=== PATIENT | female | born 1960 | race Caucasian/White ===

== ENCOUNTER 2018-06-01 17:00 | Emergency (ER) | payer OTHER ==
[~2018-06-01] VITALS: Ht 165.1 cm; Wt 66.7 kg
[~2018-06-01 17:00] MED LIST: CRESTOR PO; PERCOCET 5-3251 EACH PO
[2018-06-01] MEDS ORDERED: SYMBICORT 16010.2 GM INH (18:04)
[2018-06-01] MEDS ORDERED: ALBUTEROL2.5 MG/3 M INH (18:05)
[2018-06-01] MEDS ORDERED: PREDNISONE5 MG PO (18:05)
[2018-06-01] MEDS ORDERED: IPRATROPIU0.2 MG/1 M INH (18:05)
[2018-06-01] MEDS ORDERED: COMBIVENT RESPIM4 GM INH (18:06)
[2018-06-01] MEDS ORDERED: DICLOFENAC SODI75 MG PO (20:42)
[2018-06-01] MEDS ORDERED: CYCLOBENZAPRINE10 MG PO (20:42)
== END 2018-06-01 20:58 | disposition home or self-care (01) ==
LOC: ED 17:00
DX: S46.911A Strain of unspecified muscle, fascia and tendon at shoulder and upper arm level, right arm, initial encounter (principal); J44.9 Chronic obstructive pulmonary disease, unspecified; I10 Essential (primary) hypertension; F17.200 Nicotine dependence, unspecified, uncomplicated; Z90.710 Acquired absence of both cervix and uterus; Z88.2 Allergy status to sulfonamides; Z88.1 Allergy status to other antibiotic agents; Z79.52 Long term (current) use of systemic steroids; V89.2XXA Person injured in unspecified motor-vehicle accident, traffic, initial encounter
CPT/HCPCS: 71046; 73030; 99283-25

== ENCOUNTER 2021-06-02 09:55 | Day surgery (SDC) | payer OTHER ==
[~2021-06-02] VITALS: Ht 165.1 cm; Wt 46.9 kg
[~2021-06-02 09:55] MED LIST changes: +ALBUTEROL2.5 MG/3 M INH; +COMBIVENT RESPIM4 GM INH; +CYCLOBENZAPRINE10 MG PO; +DICLOFENAC SODI75 MG PO; +IPRATROPIU0.2 MG/1 M INH; +MONTELUKAST SOD10 MG PO; +OXYBUTYNIN CHLO10 MG PO; +PREDNISONE5 MG PO; +ROSUVASTATIN CA40 MG PO; +SERTRALINE HCL50 MG PO; +SYMBICORT 16010.2 GM INH; +TRIAMTERENE-HC1 EAC3 PO; +XANAX1 MG PO
--- NOTE | 2021-06-02 12:51 | NUR ---
06/02/21 1251 Joanna Pinon 1213 PT ARRIVED IN PACU SLEEPY LAYING PRONE. 1220 REPOSITIONED TO BACK AND SITTING UP TALKING TO STAFF. 1230 SIPPING ON WATER. DC INSTRUCTIONSG GIVEN. ALL QUESTIONS ANSWERED. 1240 LEFT VIA W/C ON OWN O2.
== END 2021-06-02 12:40 | disposition home or self-care (01) ==
LOC: OPS 09:55 → DS 09:55 → OPS 12:00
PROVIDERS: ATTEND Specialist
PROC: 079T3ZX Drainage of Bone Marrow, Percutaneous Approach, Diagnostic (ICD-10-PCS; 2021-06-02)
PROC: 07DR3ZX Extraction of Iliac Bone Marrow, Percutaneous Approach, Diagnostic (ICD-10-PCS; principal; 2021-06-02 12:00)
DX: C94.6 Myelodysplastic disease, not elsewhere classified (principal); I10 Essential (primary) hypertension; J44.9 Chronic obstructive pulmonary disease, unspecified; E78.5 Hyperlipidemia, unspecified; Z99.81 Dependence on supplemental oxygen; Z88.2 Allergy status to sulfonamides; Z88.1 Allergy status to other antibiotic agents
CPT/HCPCS: 01112; 36415; 85007; 85025; J2704; J7121

== ENCOUNTER 2022-05-21 16:39 | Inpatient (IN) | payer MEDICARE, OTHER ==
[~2022-05-21] VITALS: Ht 165.1 cm; Wt 45.3 kg
--- OUTSIDE RECORDS SUMMARY | 2022-05-21 16:42 | XMS ---
PreManage Notification: DANIEL MARTINEZ [employer] Events No recent Security Events currently on file [facility] There are no care providers on record at this time. Richard has no Care Guidelines for this patient. Rod VISIT COUNT (12 MO.) 1 LI Bourne TOTAL 1 NOTE: Visits indicate total known visits. ED/UCC VISIT TRACKING (12 MO.) 05/21/2022 16:40 LI [facility]aza OR TYPE: Emergency COMPLAINT: - ALTERED LOC INPATIENT VISIT TRACKING (12 MO.) No inpatient visits to display in this time frame [email or web address]
[2022-05-21] MEDS ORDERED: IMATINIB MESYL400 MG PO (20:11)
[2022-05-21] MEDS ORDERED: ACETAMINOPHEN-1 EAC1 PO (20:13)
[2022-05-21] MEDS ORDERED: K-TAB ER20 MEQ PO (20:14)
[2022-05-21] MEDS ORDERED: METOPROLOL SUCC25 MG PO (20:14)
[2022-05-21] MEDS ORDERED: FUROSEMIDE20 MG PO (20:15)
[2022-05-21] MEDS ORDERED: FAMOTIDINE20 MG PO (20:16)
[2022-05-21] MEDS ORDERED: SPIRIVA RESPIMAT4 GM INH (20:17)
--- NOTE | 2022-05-21 20:45 | NUR ---
Patient received from ED nurse, ZACHERY Gregg with report given at bedside. Patient on 4 LPM supplemental oxygen via facemask with no respiratory distress. Patient is accompanied by partner, Yves. Initial assessment performed with no critical measures necessary. All vital signs stable with no indications of fever or pain. Blood glucose assessed to be within normal limits with value of 100. Chlorahexidine bath performed with skin tear noted on right elbow and redness and ecchymosis noted on neck and bliateral arms. Peripheral iv's flushed with dressings intact. Verduzco catheter in place and draining properly.
--- NOTE | 2022-05-21 21:12 | EKG ---
[facility] [address] [facility] [place] [address] Signed Sinus tachycardia Anteroseptal infarct (cited on or before 21-MAY-2022) Abnormal ECG When compared with ECG of 21-MAY-2022 16:54, (Unconfirmed) Serial changes of evolving Anteroseptal infarct present Confirmed by Rolo Su MD () on 05/21/2022 9:12:19 PM Electronically Signed By: ROLO SU MD 05/21/222111 PATIENT NAME: DANIEL MARTINEZ Electrocardiogram DATE OF : 56 PHYSICIAN: ROLO SU MD REPORT #: [id number] REPORT IS CONFIDENTIAL AND NOT TO BE RELEASED WITHOUT AUTHORIZATION
--- NOTE | 2022-05-21 21:13 | EKG ---
[facility] [address] [facility] [place] [address] Signed Sinus tachycardia Anteroseptal infarct , age undetermined Abnormal ECG No previous ECGs available Confirmed by Rolo Su MD () on 05/21/2022 9:13:04 PM Electronically Signed By: ROLO SU MD 05/21/222112 PATIENT NAME: DANIEL MARTINEZ Electrocardiogram DATE OF : 56 PHYSICIAN: ROLO SU MD REPORT #: [id number] REPORT IS CONFIDENTIAL AND NOT TO BE RELEASED WITHOUT AUTHORIZATION
--- NOTE | 2022-05-21 22:00 | NUR ---
MD called regarding nightly medications with orders received to administer night meds including patient's own Imatinib 400 mg tab for blood cancer treatment. Patient ate snack with meds and is now resting comfortably while on BiPap at 32% FiO2. All vital signs stable.
--- NOTE | 2022-05-22 | NUR ---
Repeat assessment performed with no acute changes since previous assessment unless noted. All vital signs stable with no complaints or indications of acute respiratory distress, fever or pain. IV fluids infusing via PIV at 125 ml/hr and castellanos remains in place and draining. Will continue to monitor.
--- NOTE | 2022-05-22 02:00 | NUR ---
Called RT to patient room at 0100 due to respiratory distress and low O2 sats. BiPAP settings and Oxygen adjusted. Adminisered tylenol for complaints of headache. Will continue to monitor.
--- NOTE | 2022-05-22 04:00 | NUR ---
Repeat assessment performed with any acute changes noted. BiPap settings now AVAPS mode, Rate 14, TV 500, EPAP 5, 35% FiO2. All vital signs now stable ith no complaints of acute respiratory distress, fever or pain. NS still infusing via PIV at 125 ml/hr. Verduzco remains in place and patent. Will continue to monitor.
--- NOTE | 2022-05-22 06:02 | NUR ---
Patient awake and watching television with no complaints of respiratory distress or pain. All vital signs stable with no indications of fever. Comfort measures provided.
--- NOTE | 2022-05-22 06:40 | NUR ---
Dr. Mccallum notified of overnight episodes of respiratory distress and patient's wish to be intubated. Orders received to give 9am dose of Solumedrol now and 15 mg albuterol treatment. Doctor indicated that he will speak with patient today to clarify code status.
[2022-05-22] MEDS ORDERED: VENTOLIN HFA18 GM INH (07:28)
--- NOTE | 2022-05-22 07:47 | NUR ---
IN PATIENT'S ROOM FOR MORNING ASSESSMENT AND VITALS. PT AWAKE, SITING UPRIGHT IN BED UPON INITIAL ASSESSMENT, ON BIPAP. SETTINGS ARE AVAPS 5 VT 500 AND 40% FI02. SP02 ON THIS IN THE HIGHER 90s. PT STATES THE MASK IS WET AND WANTING TO HAVE IT DRIED OFF. MASK OFF FOR 1-2 MINUTES AND ON 4 L OXYMASK WHILE SHE TAKES A FEW DRINKS OF WATER. PT QUICKLY BECOMES SHORT OF BREATH OFF THE BIPAP. PT DOESN'T RECALL EVENTS FROM YESTERDAY, BUT STATES SHE IS BREATHING BETTER THAN SHE WAS EARLIER IN THE NIGHT. PLAN OF CARE DISCUSSED. PT AGREEABLE TO WEAR BIPAP THROUGH THE DAY. BAILEY DRAINING CLEAR YELLOW URINE. RT NOW IN ROOM PROVIDING BREATHING TREATMENT. CONTINUE TO MONITOR CLOSELY.
--- NOTE | 2022-05-22 08:21 | NUR ---
PATIENT STATES SHE HAS A HEADACHE. TYLENOL OFFERED. PT AGREEABLE. PT STATES SHE DOESN'T FEEL ABLE TO TAKE THE BIPAP MASK OFF AT THIS TIME SHE IS HAVING A PANICK ATTACK. REASSURING PATIENT AND WILL GIVE MEDS WHEN PATIENT FEELS MORE UNDER CONTROL WITH HER BREATHING. CURRENT SP02 IS 94% ON 35% BIPAP. PT AGREEABLE THAT SHE WANTS TO WAIT BEFORE TRYING TO DRINK/TAKE PILLS. CONTINUE TO MONITOR. CALL LIGHT IN REACH. PT WATCHING TV.
--- NOTE | 2022-05-22 08:33 | NUR ---
DR. SU IN ROOM AT THIS TIME AND PATIENT WISHES TO STAY A DNR/DNI AT THIS TIME. DISCUSSED PLAN OF CARE. IV STEROIDS TO BE INCREASED.
--- NOTE | 2022-05-22 10:57 | NUR ---
PATIENT USES CALL LIGHT AND TAPS HER CHEST TO SHOW SHE IS STRUGGLING TO BREATH. RT CALLED TO GIVE PRN NEB TX. PT VERY ANXIOUS, PULLING AT SIDE RAIL AND STATING AGAIN, "I CAN'T BREATH." WHILE NEB TX GOING, PRN ATIVAN GIVEN (SEE EMAR). PT HAS NEVER BEEN ADMITTED FOR A COPD EXACERBATION, AND IS UNSURE OF COURSE OF HOSPITALIZATION. DISCUSSED WITH HER THE PLAN OF CARE AND THE STEPS NEEDED TO CONTINUE TO HELP HER, INCLUDING WEARING BIPAP AND FREQUENT NEB TXs, ALONG WITH THE STEROIDS. PT REASSURED BEST POSSIBLE. PT STARTING TO CALM. BAILEY CONTINUES TO DRAIN CLEAR YELLOW URINE. WILL CONTINUE TO MONITOR CLOSELY. DISCUSSED WITH RT POTENTIALLY DOING NEB TXs CLOSER TO Q2 THAN Q4 FOR THE NEXT SEVERAL NEB TXs.
--- NOTE | 2022-05-22 12:24 | NUR ---
PT IS RESTING WITH EYES CLOSED BUT CAN BE AROUSED. PT HAS CALL LIGHT WITHIN REACH. PT RECIEVED ATIVAN 0.5MG WHICH ALLOWED HER TO REST AND SLEEP. PT HAS RECIEVED 500ML OF NS AND HER OUTPUT IS 223ML, THE URINE IS YELLOW.
--- NOTE | 2022-05-22 13:03 | NUR ---
PATIENT'S JENNIFER NOW IN ROOM AND GIVEN UPDATE. PT AWAKE AND CONVERSING SLIGHLTY WITH HIM, BUT HARD FOR HER TALK WITH BIPAP MASK ON. WILL CONTINUE TO MONITOR.
--- NOTE | 2022-05-22 15:17 | NUR ---
PT RECIEVED CORTICOSTEROID PER eMAR AND IS RESTING COMFORTABLE IN BED WITH THE CALL LIGHT WITHIN REACH. THE PT IS EASILY SHORT OF BREATH AND HAS BIPAP ON AT 35% AND HAS WORN BIPAP FOR THE MAJORITY OF DAY. PT IS VERY AGREEABLE WHEN CARE PLANS ARE BEING DISCUSSED AND APPRECIATES WHEN THINGS ARE EXPLAINED TO HER. PT HAS NEVER BEEN HOSPITALIZED FOR COPD BEFORE AND BECOMES VERY ANXIOUS AROUND HER BREATHING. WILL CONTINUE TO MONITOR.
--- NOTE | 2022-05-22 16:04 | NUR ---
PATIENT CALLING OUT PANICKED BECAUSE SHE COULDN'T FIND HER CALL LIGHT AND STATES, "I CAN'T BREATH!" PT STILL WEARING BIPAP. LUNGS ASSESSED. RT CALLED AND ARRIVES TO ROOM TO ASSESS PATIENT. PATIENT WORKING HARDER TO BREATH THAN EARLIER, BUT SEEMINGLY MORE ANXIOUS WELL. LAST NEB WAS AT 0230, AND THIS WAS AROUND 0330. RT MADE SOME CHANGES TO BIPAP SETTINGS AND 0.25 IV ATIVAN GIVEN. LUNGS CONTINUE TO HAVE INSP AND EXP WHEEZING AUSCULTATED. SP02 HAD ALSO BEEN LOWER IN THE MID TO LOW 90s ON 35%. NEXT NEB TO BE GIVEN AROUND 1630 PER RT. PATIENT STATES AFTER RT MADE CHANGES TO BIPAP THAT SHE COULD FEEL THE DIFFERENCE AND FELT MORE AT EASE. WILL CONTINUE TO MONITOR CLOSELY. PT NOW VERY CONCERNED ABOUT HER NORMAL NIGHT TIME MEDIATIONS AND DISCUSSING WITH THIS RN WHICH MEDICATIONS IN PARTICULAR SHE WANTED TO MAKE SURE SHE WAS TAKING. WILL DISCUSS WITH .
--- NOTE | 2022-05-22 17:42 | NUR ---
DR. SU CALLED TO GIVE UPDATE ON PATIENT AND OVERALL HOW SHE HAS DONE TODAY. ORDERS TO BE REC'D FOR DIFFERENT IVF. WILL HAVE RT CALL MD TO GIVE UPDATE WELL.
--- NOTE | 2022-05-22 20:00 | NUR ---
Bedside report received from the outgoing nurse, ZACHERY Escamilla. Initial assessment performed with no critical measures necessary. All vital signs stable with no complaints of acute respiratory distress, fever or pain. Patient is on BiPAP mode with settings of 20/8 at 40% FiO2. IV fluids infusing via PIV at 125 ml/hr. Verduzco in place, patent and draining with no dependent loops. Will continue to monitor.
--- NOTE | 2022-05-22 22:00 | NUR ---
Patient resting comfortably while on BiPAP. Mode was changed to AVAPS by RT at 20:30 and patient is tolerating the revised settings well. All vital signs stable.
--- NOTE | 2022-05-23 | NUR ---
Repeat assessment performed with any acute changes noted. Patient trialing 4 L nasal cannula for water and nutrition break. All vital signs stable with no indications of acute respiratory distress, fever or pain. IV fluids still infusing at 125 ml/hr. Verduzco in place and patent. Will continue to monitor closely for signs of respiratory distress while on nasal cannula. RT at bedside as well.
--- NOTE | 2022-05-23 00:27 | NUR ---
Patient back on BiPap after 30 minute trial on 4 LPM nasal cannula. No acute respiratory distress noted. All vital sign stable.
--- NOTE | 2022-05-23 02:30 | NUR ---
Patient stable and resting comfortably after power outage. All vital signs stable with no indications of further respiratory distress. Will continue to monitor.
--- NOTE | 2022-05-23 04:00 | NUR ---
Repeat assessment performed with no acute changes since previous assessment unless noted. All vital signs stable with no complaints or indications of further respiratory distress, fever or pain. Patient still on AVAPS setting with Rate 16, TV 500, EPAP 6, and 40% FiO2. IV fluids still infusing at rate of 125 ml/hr. Verduzco in place and patent. Will continue to monitor.
--- NOTE | 2022-05-23 06:22 | NUR ---
Patient resting comfortably with no complaints of further respiratory distress. All vital signs stable. Verduzco bag emptied and comfort measures provided.
--- NOTE | 2022-05-23 07:31 | NUR ---
PATIENT AWAKE, ON BIPAP, AND INDICATES SHE IS FEELING BETTER TODAY. RT IN ROOM NOW GIVING BREATHING TX. BIPAP SETTINGS ARE AVAPS 6, VT 500, FI02 40%. SP02 HIGH 90s, 98-100%. RT TURNING DOWN FI02 TO 35%. PT ASKING FOR BREAKFAST AND THIS WAS ORDERED FOR HER. BAILEY CONTINUES TO DRAIN CLEAR YELLOW URINE. CONTINUE TO MONITOR.
--- NOTE | 2022-05-23 07:36 | NUR ---
PT AWAKE AND CONVERSING WITH NURSES AND RT. COGNITIVE STATUS HAS INCREASED SIGNIFICANTLY THIS AM. PT MADE REQUESTS FOR BREAKFAST AND IS CONVERSING WITH OUT BECOMING HYPOXIC. PT HAS CALL LIGHT WITHIN REACH. PT IS IN THE ROOM WITH RT AND RECIVING HER DUONEB. WILL CONTINUE TO MONITOR.
--- NOTE | 2022-05-23 07:51 | NUR ---
PATIENT USES CALL LIGHT AND STATES SHE CAN'T BREATH. RT CALLED BACK AND REPORTED THIS TO HER. RT COMING BACK TO MAKE SOME CHANGES ON BIPAP. CONTINUE TO MONITOR.
--- NOTE | 2022-05-23 09:42 | NUR ---
PATIENT COMES OFF BIPAP FOR AROUND 7 MINUTES AND ABLE TO TAKE HER AM MEDS, BUT UNABLE TO EAT ANYTHING. PT STILL TOO SHORT OF BREATH. PT WAS PLACED ON 4 L NC AFTER COMING OFF BIPAP. BACK ON BIPAP AND PT STILL FEELING SHORT OF BREATH AND PANICKING. RT CALLED AND NOW GIVING PRN NEB TX. PT WANTS TO EAT BUT IS TOO SHORT OF BREATH TO EAT AT THIS TIME.
--- NOTE | 2022-05-23 10:30 | NUR ---
Attempted to see pt. She has Bipap in place. Nurse was able to ask her questions. Per RN pt had difficult day and night. She has been using Bipap. She has CPAP at home but likes the BIPAP better. Spouse does the shopping and cooking as pt does not go out much and is homebound. Pt was found down in the bathroom when spouse got home. Information was obtained by Carine Kuhn. Pt discussed with Dr. Mccallum. Will check for noninvasive vent for this pt.
--- NOTE | 2022-05-23 10:44 | NUR ---
DR. SU IN ROOM TO SEE PATIENT. PLAN OF CARE DISCUSSED. FURTHER ORDERS TO BE PLACED BY MD. PT REMAINS ON BIPAP AT THIS TIME. CONTINUE TO MONITOR.
--- NOTE | 2022-05-23 11:14 | NUR ---
PT IS RESTING IN ROOM WITH CALL LIGHT WITHIN REACH. THE PTS GOT A NEW BAG OF D5 1/5 NS AT 125 ML/HR. PT NODDED THAT SHE IS SLEEPING WELL AND THAT HER BREATHING IS A LITTLE EASIER. WILL CONTINUE TO MONITOR.
--- NOTE | 2022-05-23 13:12 | NUR ---
ZACHERY COTO INFORMED ME PT IS ON BI-PAP AND ASLEEP. REQUESTED I NOT DISTURB. WILL CONTINUE TO FOLLOW
--- NOTE | 2022-05-23 13:30 | NUR ---
PATIENT GIVEN BED BATH AND TOLERATED FAIR. BED BATH WAS GIVEN OVER 2 SEGMENTS TO HELP DECREASE HER WORK OF BREATHING. PT UNABLE TO TOLERATE VERY MUCH ACTIVITY AT ALL. NEW BATH BLANKET UNDER PATIENT AND BAILEY CARE PROVIDED. WARM BLANKET PROVIDED. NEW ORDERS REC'D FOR MUCINEX PRN AND IV POTASSIUM.
--- NOTE | 2022-05-23 14:01 | NUR ---
RT IN ROOM AND GIVING PRN NEB AT THIS TIME. RT SUGGESTING TRYING VAPOTHERM NEXT TO SEE IF THIS WILL ALLOW PATIENT TO POTENTIALLY EAT SOME DURING THE DAY. RT WILL DISCUSS WITH MD AND PREPARE VAPOTHERM FOR FUTURE USE.
--- NOTE | 2022-05-23 14:27 | NUR ---
PATIENT'S IN TO SEE PATIENT. UPDATE PROVIDED.
--- NOTE | 2022-05-23 15:29 | NUR ---
PT PUSHED CALL LIGHT TO SAY SHE WAS HAVING DIFFICULTY BREATHING. RT WAS CALLED WHERE THEY EVALUATED THE PT AND DECIDED TO GIVE ANOTHER BREATHING TREATMENT. PT WAS ALSO GIVEN 0.25MG OF ATIVAN TO TAKE SOME OF THE ANXIETY AWAY. PT RESTATED THAT SHE HAS NEVER BEEN HOSPITALIZED FOR COPD EXACERBATION BEFORE WHICH IS FACTOR TO WHY SHE IS HAVING SO MUCH ANXIETY AROUND THE MOMENTS HER BREATHING FEELS TIGHT. THE PT RESTING IN THE ROOM WITH THE CALL LIGHT WITHIN REACH. WILL CONTINUE TO MONITOR.
--- NOTE | 2022-05-23 16:30 | NUR ---
RT CALLED AGAIN FOR INCREASED WORK OF BREATHING. RT CALLS DR. SU AND IS NOW GOING TO GIVE PATIENT A CONTINUOUS NEB TX. CONTINUE TO MONITOR.
--- NOTE | 2022-05-23 18:14 | NUR ---
PT IS RESTING PEACEFULLY IN ROOM WITH CALL LIGHT WITHIN REACH. WILL CONTINUE TO MONITOR.
--- NOTE | 2022-05-23 18:30 | NUR ---
PATIENT RESTING MORE COMFORTABLY ON BIPAP NOW AND DOES NOT APPEAR TO BE BREATHING LABORED EARLIER AND THROUGH MOST OF THE DAY. BIPAP SETTINGS ARE AVAPS AT 6 EPAP, FI02 40%, RATE OF 16. HR IN THE 90s AT THIS TIME. PT HAD THE CONTINUOUS NEB EARLIER THIS EVENING AND THAT SEEMS TO HAVE HELPED PATIENT.
--- NOTE | 2022-05-23 20:00 | NUR ---
Bedside report received from [facility] nurse, ZACHERY Escamilla. Initial assessment performed with no critical interventions necessary. All vital signs stable with no complaints or indications of further respiratory distress, fever or pain. Patient awakened to sound and was able to take of the BiPap for brief conversation. BiPap remained on AVAPS mode with rate 16, TV 500, EPAPS 6 and 40% FiO2. IV fluids infusing via PIV at ratre of 125 ml/hr. Verduzco in place, patent and draining appropriately.
--- NOTE | 2022-05-23 22:00 | NUR ---
Patient sleeping comfortably with no indications of acute distress. All vital signs stable. Will continue to monitor.
--- NOTE | 2022-05-24 00:27 | NUR ---
Repeat assessment performed with no acute changes since previous assessment. All vital signs stable with no complaints or indications of further respiratory distress, fever or pain. Patient sleeping comfortably but awakens to sound. Will continue to monitor.
--- NOTE | 2022-05-24 02:00 | NUR ---
Patient sleeping comfortably with BiPAP in place. All vital signs stable.
--- NOTE | 2022-05-24 04:00 | NUR ---
Repeat assessment performed with no acute changes since initial assessment unless noted. All vital signs stable with no complaints or indications of further respiratory distress, any fever or pain. BiPap settings remain unchanged. Verduzco still in place, patent and draining appropriately. Patient does awaken to sound and comfort measures provided.
--- NOTE | 2022-05-24 04:49 | NUR ---
Patient awakened at 0440 with complaints of respiratory distress. Oxygen increased to 55% and ativan given for anxiety. Patient awake and watching television with no further complaints. Vital signs stable.
--- NOTE | 2022-05-24 06:27 | NUR ---
Patient awake with coughing spell. Comfort measures provided and vitals stabilized. Will continue to monitor and report to day shift RN.
--- NOTE | 2022-05-24 08:00 | NUR ---
RT IS IN THE PTS ROOM RECIVING HER DUO NEB TREATMENT VIA NEBULIZER. PT AGREED TO COME OFF BIPAP AND ON TO THE NASAL CANNULA, PT DRANK WHOLE ENSURE AND REQUESTED TYLENOL FOR HER HEADACHE. RT IS PUTTING PT ON VAPOTHERM. PT IS TOLERATING BEING OFF THE BIPAP AND IS USING THE PURSED LIP BREATHING METHOD TO CONTROL HER BREATHING. PT HAS CALL LIGHT WITHIN REACH. WILL CONTINUE TO MONITOR.
--- NOTE | 2022-05-24 08:21 | NUR ---
PT DESATURATED WHILE RT WAS IN THE ROOM. PTS HR DROPPED TO 64 AND O2 DROPPED TO 70S. RT PUT PT BACK ON BIPAP WITH A FIO2 OF 45%. CALL LIGHT WITHIN REACH. WILL CONTINUE TO CLOSELY MONITOR.
--- NOTE | 2022-05-24 08:49 | NUR ---
DR. SU IN ROOM TO SEE PATIENT. PLAN OF CARE DISCUSSED. PT BACK ON BIPAP NOW AFTER SPENDING AROUND 30-35 MINUTES ON 4 L NC. PT TOLERATED BEING OFF FAIRLY WELL UNTIL SHE STARTED TO DESATURATE AND BECAME MORE BRADYCARDIC AT THIS TIME. SP02 DROPPED TO 70s AND HR WAS ALSO DOWN TO THE 70s. IVF CONTINUE AT 125 ML/HR. CONTINUE TO MONITOR.
--- NOTE | 2022-05-24 12:22 | NUR ---
PT WENT ON VAPOTHERM WHILE SHE ATE AN ENTIRE PUDDING CUP. THE PT WAS OFF THE VAPOTHERM FOR 10 MINUTES WHILE SHE ATE. IMMEDIATELY THE PT REQUESTED TO BE PUT BACK ON BIPAP AFTER EATING AND VISITING WITH DR MANZANO. DR MANZANO VERBALLY ORDERD 1-2 MG OF MORPHINE IV PRN FOR SHORTNESS OF BREATH. PT RESTING COMFORTABLY WITH THE CALL LIGHT WITHIN REACH. WILL CONTINUE TO MONITOR.
--- NOTE | 2022-05-24 13:01 | NUR ---
PATIENT USES CALL LIGHT AND SIGNALS TO HER CHEST THAT SHE IS SHORT OF BREATH. LUNGS ASSESSED AND EXP WHEEZING REMAIN, WITH DIMINISHED INSPIRATORY SOUNDS. PT ALSO HAS FINE CRACKLES HEARD IN LOWER LUNGS POSTERIORLY. RT CALLED FOR A PRN NEB TX.
--- NOTE | 2022-05-24 14:00 | NUR ---
PATIENT RESTING AT THIS TIME ON BIPAP. PT ON BIPAP STILL AT 45% AND THIS WAS TURNED DOWN TO 40%. PT STATES, "MY ANXIETY IS HIGH RIGHT NOW." DISCUSSED WITH PATIENT THAT SHE DOES HAVE MORPHINE AVAILABLE AND THAT WE COULD TRY THIS FOR HER SHORTNESS OF BREATH/ANXIETY. 1 MG IV MORPHINE GIVEN. WILL CONTINUE TO MONITOR. SP02 IS 99% AND RR IS 18.
--- NOTE | 2022-05-24 15:30 | NUR ---
PT IS RESTING IN BED WITH CALL LIGHT WITHIN REACH. PT REQUEST HER FLUIDS BE REPLINISHED WITH LOTS OF ICE WHILE SHE WAS RECIVING HER STEROID. THE PT ALSO REQUESTED A WARM BLANKET, WHICH SHE RECIEVED. THE PT IS ON BIPAP AT 40%. WILL CONTINUE TO MONITOR.
--- NOTE | 2022-05-24 16:57 | NUR ---
PT IN ROOM WITH . PT EATING DINNER WHILE ON VAPOTHERM AT 40LPM AND 40%. THE PT HAS CALL LIGHT WITHIN REACH. WILL CONTINUE TO MONITOR.
--- NOTE | 2022-05-24 20:00 | NUR ---
Bedside report received from outgoing nurse, ZACHERY Escamilla. Initial assessment performed with no critical interventions necessary. Patient did state that she felt short of breath with a request for anxiety medication. Morphine 1mg IVP was administered and tolerated well. All vital signs stable with no indications of fever or pain. Lactated ringers infusing via PIV at rate of 75 ml/hr. Verduzco in place, patent and draining appropriately. Will continue to monitor.
--- NOTE | 2022-05-24 22:00 | NUR ---
Patient sleeping comfortably at this time. FiO2 titrated down to 35% at 2100 after reviewing ABG results. All vital signs stable.
--- NOTE | 2022-05-25 00:24 | NUR ---
Repeat assessment performed with any acute changes since previous assessment noted. All vital signs stable with no indications of respiratory distress, fever or pain. Patient does complain of being air hungry and anxious with O2 saturation of 98% on 35% FiO2. Morphine 1 mg IVP administered and comfort measures provided.
--- NOTE | 2022-05-25 02:07 | NUR ---
Patient sleeping after period of anxiety. RT called to room at 0110 to administer PRN breathing treatment per patient request. Comfort measures provided. All vital signs remain stable and within normal limits.
--- NOTE | 2022-05-25 04:00 | NUR ---
Repeat assessment performed with no acute changes since previous assessment. All vital signs stable with no indications of fever or pain. Patient does complain of respiratory distress and RT at bedside to administer breathing treatment. IV fluids still infusing at 75 ml/hr and castellanos still in place and draining. Will continue to monitor.
--- NOTE | 2022-05-25 06:06 | NUR ---
Patient complained of anxiety at 0435 at which time morphine 2 mg IVP was adminstered. Patient only briefly slept and is now awake with no complaints. All vital signs stable with no indications of respiratory distress, fever or pain. Comfort measures provided.
--- NOTE | 2022-05-25 07:17 | NUR ---
RECEIVED REPORT FROM JAYESH BINGHAM. ASSUMING CARE OF PT. PT RESTING IN BED WATCHING TV. CALL LIGHT WITHIN REACH AND BED RAIL UP FOR SAFETY. PT ON BIPAP WITH F102 @ 38, RR 16, VT 500, EPAP 6. PT TOLERATING BIPAP WELL. REQUESTED CURTAINS OPEN FOR THE DAY. PT IV FLUID CLEARED AND OUTPUT MEASURED. PT HAS LR @ 75ML/HR. DENIES FURTHER NEEDS.
--- NOTE | 2022-05-25 08:17 | NUR ---
pt complains of shortness of breath and "feeling like I cant breath" PT breathing is labored but even, good seal on bipap. spo2 = 20. Theraputic communication at this time. Scheduled nebulizers administered by RT along with 2 mg IV morphine for work of breathing. AM Medications administered. Plan of care for day established with PT. call light within reach. RT remains at bedside. will continue to monitor.
--- NOTE | 2022-05-25 08:45 | NUR ---
HI CONTINUES TO BE SHORT OF BREATH, STERNAL RETRACTIONS NOTED, WORK OF BREATHING WORSENED. HEART RATE IN THE 120S. BLOOD PRESSURE IN THE 170S SYSTOLICALLY. PT VERY ANXIOUS. DR BEAVER CALLED AN UPDATED ON PT CONDITION AT THIS TIME. ONE TIME TELEPHONE ORDER FOR AN ADDITIONAL TWO MILIGRAMS OF MORPHINE GIVEN AT THIS TIME.
--- NOTE | 2022-05-25 09:15 | NUR ---
PT NOW RESTING MORE COMFORTABLY. BREATHING LESS LABORED. TOLERATING BIPAP WELL. SPO2 = 96% WITH FIO2 = 40%. WILL CONTINUE TO CLOSELY MONITOR.
--- NOTE | 2022-05-25 11:44 | NUR ---
RT in room giving pt a breathing tx. PT remains on bipap. half of bed bath complete. tolerated without turning. plan established turn PT in bed after p PRN morphine is available again.
--- NOTE | 2022-05-25 11:45 | NUR ---
DR BEAVER IN ROOM AT THIS TIME TO ASSESS THE PT AND DISCUSS THE PLAN OF CARE. DR BEAVER DISCUSSED THAT PT CONDITION HAS NOT IMPROVED IN THE LAST THREE DAYS WITH HIGH DOSE THERAPY, PT STATES THAT SHE WISHES TO CONTINUE CURRENT TREATMENT. PRN MEDICATION FOR ANXIETY ADDED TO EMAR AND DOSAGE OF MORPHINE FOR AIR HUNGER CHANGED. DISCUSSED PT LOW URINE OUTPUT AND POOR ORAL INTAKE, IV FLUIDS CHANGED AT THIS TIME (SEE EMAR). PT UNDERSTANDS PLAN OF CARE. THIS RN AND FULL STACK NET DEVELOPER REMAIN AT BEDSIDE.
--- NOTE | 2022-05-25 12:34 | NUR ---
BED BATH COMPLETED. INCREASED FIO2 TO 60% FOR MOVEMENT. PT SHORT OF BREATH BUT RECOVERED. PLACED ON VAPOTHERM AT THIS TIME AT 40L AND 40%. ORAL CARE COMPLETED. PT GIVEN ENSURE. IV FLUIDS INFUSING. CALL LIGHT WITHIN REACH. WILL CONTINUE TO MONITOR.
--- NOTE | 2022-05-25 13:45 | NUR ---
PT REMAINS ON VAPOTHERM. ACCESSORY MUSCLE USE MINIMAL, MILD STERNAL RETRACTIONS NOTED. PT STATES SHE FEELS OK AND DENIES NEED FOR MEDICATION FOR SHORTNESS OF BREATH OR ANXIETY. CALL LIGHT WITHIN REACH. SIGNIFICANT OTHER AT BEDSIDE. WILL CONTINUE TO MONITOR.
--- NOTE | 2022-05-25 14:15 | NUR ---
Spoke with Liss. She is off bipap at this time. She cont. to want to go home when and if she is medically cleared. She does not want placement.
--- NOTE | 2022-05-25 15:10 | NUR ---
PT BECOMING SHORT OF BREATH, REQUESTS TO GO BACK ON BIPAP. 4 MG IV MORPHINE GIVEN FOR SHORTNESS OF BREATH AND PT PLACED BACK ON THE BIPAP AT THIS TIME. WILL CLOSELY MONITOR.
--- NOTE | 2022-05-25 17:16 | NUR ---
PT GIVEN IV MORPHINE FOR SHORTNESS OF BREATH AND PLACED ON VAPOTHERM AGAIN. PT RESTING COMFORTABLY AT THIS TIME. RR= 20, SPO2 = 94%. SIGNIFICANT OTHER AT BEDSIDE. PT ENCOURAGED TO DRINK ENSURE AND INCREASE ORAL INTAKE. URINE PRODUCTION HAS IMPROVED. CALL LIGHT WITHIN REACH. DENIES FURTHER NEEDS AT THIS TIME.
--- NOTE | 2022-05-25 18:06 | NUR ---
FIELD START IV REMOVED FROM LEFT AC, AND NEW IV STARTED BY SCRAPE GATHERER IN LEFT UPPER ARM. WELL TOLERATED BY PT. PT REMAINS ON VAPOTHERM AT 40L/40%. SIGNIFICANT OTHER REMAINS AT BEDSIDE. CALL LIGHT WITHIN REACH. WILL CONTINUE TO MONITOR.
--- NOTE | 2022-05-25 20:00 | NUR ---
Bedside report received from outgoing nurse, ZACHERY Ramos with morphine administered for anxiety during report. Initial assessment performed with no other critical interventions necessary. All vital signs stable with no indications of further respiratory distress, fever or pain. IV fluids are now D5LR and infusing via PIV at rate of 125 ml/hr. Verduzco is in place, patent and draining aprropriately. Will continue to monitor.
--- NOTE | 2022-05-26 00:06 | NUR ---
Repeat assessment performed with any acute changes noted. All vital signs stable with no indications or complaints of respiratory distress, fever or pain. IV fluids infusing at rate of 125 ml/hr. Verduzco in place, patent and draining appropriately. Patient off of BiPap by request to eat midnight snack. She seems to be tolerating Vapotherm 40L/40% with pursed lip breathing. Will closely monitor and resume BiPap by request or at first signs of acute respiratory distress.
--- NOTE | 2022-05-26 00:35 | NUR ---
Patient tolerated Vapotherm for 45 minutes. BiPap reapplied after patient's heart rate spiked to 120 and patient agreed that she was in distress. Previous BiPAP settings in place. Ativan 1mg IVP administered for anxiety.
--- NOTE | 2022-05-26 02:00 | NUR ---
Patient resting quietly with s/t BiPAP settings at 40% FiO2. All vital signs stable.
--- NOTE | 2022-05-26 04:00 | NUR ---
Repeat assessment performed with no acute changes since previous assessment unless noted. All vital signs stable with no indications of acute respiratory distress, fever or pain. IV fluids infusing at ordered rate and castellanos in place and patent. Will continue to monitor.
--- NOTE | 2022-05-26 06:37 | NUR ---
Patient sleeping comfortably with no indications of respiratory distress. All vital signs stable. Will replay report to dayshift RN.
--- NOTE | 2022-05-26 07:20 | NUR ---
ASSUMING CARE OF PT. RECEIVED REPORT FROM ASHLEY BINGHAM.
--- NOTE | 2022-05-26 07:45 | NUR ---
PT RESTING IN BED WITH EYES CLOSED, RESPIRATIONS EVEN AND UNLABORED. PT ON BIPAP WITH SETTINGS AT RR 20, IPAP 18, EPAP 6, AND FI02 @ 40%. PT HAS D5 LR @ 150ML. PT HAS BAILEY IN PLACE AND ON FOXER.
--- NOTE | 2022-05-26 08:50 | NUR ---
PT PLACED ON VAPOTHERM AT 40L 40%. MORNING MEDICATION GIVEN AND ASSESSMENT COMPLETED. PT REQUESTED MORPHINE FOR SHORTNESS OF BREATH. PT HAS EXPIRATORY WHEEZE IN LEFT LUNG AND CLEAR DIMINSHED IN THE RIGHT. PT BOWEL TONES ACTIVE AND HEART SOUNDS STRONG. PT SKIN DRY, WARM, AND INTACT. PT IS ALERT AND ORIENTED, RESPONDING TO NURSE QUESTIONS AND DIRECTIONS. RADIAL AND PEDAL PULSES STRONG WELL HOME CARE SPECIALIST STRENGTH IN UPPER AND LOWER EXTREMITIES. PT HAS EDEMA PRESENT IN RIGHT LOWER LEG. PT HAS ALLEVYN BANDAGE ON NOSE TO PREVENT BREAKDOWN FROM BIPAP.
--- NOTE | 2022-05-26 09:34 | NUR ---
PT USED CALL LIGHT. THIS RN TO ROOM. PT TAPPING ON CHEST STATING SHE FEELS LIKE SHE CANNOT BREATHE. PT INSTRUCTED ON BREATHING TECHNIQUE AND PLACED BACK ON BIPAP. AFTER TWO MINUTES PT ABLE TO RELAX.
--- NOTE | 2022-05-26 11:50 | NUR ---
PT PLACED ON VAPOTHERM TO EAT LUNCH. RT CAME IN TO GIVE BREATHING TREATMENT. WITHIN TWO MINUTES OF TREATMENT, PT TAPPING CHEST AND OXYGEN SATURATION DECREASE TO HIGH 80S. PT PLACED BACK ON BIPAP. AFTER A FEW MINUTES O2 SAT IS 97% AND PT RESTING. PT INFORMED TREATMENT AND VAPOTHERM TOGETHER IS TOO MUCH WORK ON HER BODY SO SHE CAN REST FOR A WHILE AND THEN WE WILL TRY THE VAPOTHERM AGAIN WITHOUT BREATHING TREATMENTS SO SHE CAN EAT SOME FOOD. PT VERBALIZED UNDERSTANDING AND AGREEMENT.
--- NOTE | 2022-05-26 12:45 | NUR ---
DR BEAVER IN ROOM ASSESSING PT.
--- NOTE | 2022-05-26 12:46 | NUR ---
PER DR BEAVER, PT PLACED ON NC TO SEE HOW PT WILL TOLERATE NOT BEING ON BIPAP DURING THE DAY.
--- NOTE | 2022-05-26 12:50 | NUR ---
DR BEAVER ASSESSED PT IN ROOM. PT PLACED ON VAPOTHERM TO SPEAK WITH DR. ASKED ABOUT BIPAP TIMES AND VAPOTHERM, WELL IF LOWER TITRATION HAS BEEN ATTEMPTED PT HAS BEEN SOLEY RELIANT ON BIPAP. INFORMED PT HAS PERIODS OF TIME OFF OF BIPAP AND USING VAPOTHERM @ 40L AND FIO2 40% AND RECEIVING MORPHINE DURING THOSE TIMES FOR AIR HUNGER. PER DR BEAVER, PT PLACED ON NASAL CANNULA TO ASSESS OXYGEN. PT PLACED ON 15L NC AND TOLERATED WELL @ 100%. OXYGEN TITRATED TO 8L NC. PT MONITORED FOR A FEW MINUTES AND MAINTAINED SATURATION ABOVE 97%. PLAN OF CARE ESTABLISHED TO HAVE PT USE NC DURING THE DAY AND BIPAP AT NIGHT WELL INCREASING MOBILIZATION AND HAVING PT SIT ON SIDE OF BED FOR A PERIOD OF TIME THIS AFTERNOON.
--- NOTE | 2022-05-26 12:56 | NUR ---
PT O2 SATURATION 100% ON 8L NC. OXYGEN TITRATED TO 5L.
--- NOTE | 2022-05-26 13:00 | NUR ---
Pt sleeping not awakened. Per Dr. Mathis, attempting to wean down 02. Cont. Bipap at night.
--- NOTE | 2022-05-26 13:30 | NUR ---
PT OXYGEN TITRATED TO 3L NC. PT TOLERATING WELL. O2 SATURATION 94%.
--- NOTE | 2022-05-26 17:44 | NUR ---
PT GIVEN DINNER AND REPOSITIONED IN BED. PT ENCOURAGED TO SIT ON SIDE OF BED. PT REFUSED, STATING SHE DOES NOT WANT TO GET UP. PT EDUCATED ON THE IMPORTANCE OF MOVING AND KEEPING UP MUSCLE TONE. PT VERBALIZED UNDERSTANDING.
--- NOTE | 2022-05-26 18:41 | NUR ---
PT PLACED ON BIPAP AFTER DINNER. TOLERATING WELL. SPOUSE AT BEDSIDE.
--- NOTE | 2022-05-26 20:20 | NUR ---
PT ASSESSMENT COMPLETED. PT A/O, CONTINUES ON BIPAP. PT IV FLUIDS RUNNNING. CALL LIGHT WITHIN REACH.
--- NOTE | 2022-05-26 22:26 | NUR ---
RT REQUEST A VBG ADDED TO MORNING LABS; DISCUSSED WITH MD AND ADDED ORDER.
--- NOTE | 2022-05-26 22:33 | NUR ---
PT STATES THAT SHE FEELS SOB. SPO2 92% ON 35% BIPAP. PRN MED FOR SOB PROVIDED. NO OTHER NEEDS AT THIS TIME. CALL LIGHT IN REACH.
--- NOTE | 2022-05-26 22:40 | NUR ---
TO PT ROOM FOR MEDICATION ADMINISTRATION. PT IS CURRENTLY WEARING BIPAP. DENIES ANY COMPLAINTS OR NEEDS ATT.
--- NOTE | 2022-05-27 00:06 | NUR ---
PT ASSESSMENT COMPLETED. PT DENIES NEEDS ATT. NEW BAG OF IV FLUIDS HUNG. PT REMAINS ON BIPAP.
--- NOTE | 2022-05-27 02:04 | NUR ---
ROUNDED ON PT. PT IS A/O, REMAINS ON BIPAP. IV FLUIDS RUNNING. DENIES NEEDS OR COMPLAINTS ATT. CALL LIGHT WITHIN REACH.
--- NOTE | 2022-05-27 03:34 | NUR ---
PT APPEARS TO BE SLEEPING COMFORTABLY. IV FLUIDS RUNNING. REMAINS ON BIPAP. CALL LIGHT WITHIN REACH.
--- NOTE | 2022-05-27 05:37 | NUR ---
TO PT ROOM FOR MEDICATION ADMINISTRATION. PT APPEARS TO BE MORE COMFORTABLE POST MORPHINE AND NEB ADMINISTRATION. PT DENIES NEEDS/COMPLAINTS ATT. CALL LIGHT WITHIN REACH.
--- NOTE | 2022-05-27 07:30 | NUR ---
PATIENT RESTING WITH EYES CLOSED. BIPAP IN PLACE.FIO2 35% TV 380 RATE 16. RR EVEN AND SLIGHTLY LABORED.
--- NOTE | 2022-05-27 08:26 | NUR ---
PATIENT CALLED. THIS RN IN TO ANSWER CALL LIGHT. PATIENT APPEARS VERY FRANTIC WITH HER EYES WIDE OPEN, GRABBING THE BEDRAILS WITH HER HANDS, AND STATES "I CAN'T BREATH, I CAN'T BREATH". PATIENTS SPO2 DROPPED FROM 90% TO 85% ON BIPAP, FIO2 INCREASED FROM 35 TO 50 FIO2. PATIENTS SPO2 UP TO 88%. FIO2 INCREASED TO 60%FIO2. tHIS RN CALLED RT FOR A BREATHING TREATMENT AND PRN MORPHINE DOSE GIVEN FOR HER DIFFICULTY BREATHING PER ORDERS.PATIENT REPORT IMPOVEMENT AFTER MORPHINE. PATIENTS BP DURING THIS TIME NOTED TO BE 180 SYSTOLIC. PATIENTS PRIMARY CARE RN SUSANA WAS NOTIFIED OF SITUATION. FIO2 DECREASED BACK DOWN TO 50% FIO2 WITH SPO2 92% AND RT IN THE ROOM AT THIS TIME.
--- NOTE | 2022-05-27 09:35 | NUR ---
PATIENT ASSISTED TO RECLINER CHAIR WHILE ON BIPAP. PATIENT TOLERATED FAIR. PATIENT BECAME ANXIOUS, STATING SHE CAN'T BREATHE. PROGRAM DIRECTOR SUBSTANCE ABUSE AT BEDSIDE FOR TRANSFER ADJUSTING BIPAP. PATIENT WAS ABLE TO BEAR WEIGHT, TAKE 4-5 SMALL STEPS AND SIT INTO CHAIR. PATIENT GIVEN MORPHINE AFTER TRANSFER, AND IS RESTING EASY IN CHAIR.
--- NOTE | 2022-05-27 12:07 | NUR ---
PT WAS OFF BI-PAP AND AWAKE. PT LOOKED AT ME WHEN SPOKEN TO, VERY LITTLE RESPONSE TO QUESTIONS. OFTEN WOULD LOOK AWAY. GAVE BLESSING AND COMFORT, AND G.POST. WILL FOLLOW
--- NOTE | 2022-05-27 12:07 | NUR ---
PATIENT ATTEMPTING TO EAT WHILE ON NC. PATIENT HAS EATEN MOST OF THE MASHED POTATOES. PATIENT IS WEAK AND HAS DIFFICULTY HOLDING UTENSILS.
--- NOTE | 2022-05-27 13:10 | NUR ---
PATIENT SITTING UP IN [place] NIGUEL, NC IN PLACE ON 3L. VITALS CHARTED, BAILEY EMPTIED. CALL LIGHT IN EASY REACH. LESS THAN 10% OF LUNCH CONSUMED.
--- NOTE | 2022-05-27 13:42 | NUR ---
Patient with poor appetite due to difficulty breathing. Will add Ensure to breakfast and dinner trays and assess tolerance and her ability to drink them with Bipap therapy.
--- NOTE | 2022-05-27 15:09 | NUR ---
PATIENT REFERRAL DOCUMENTS SENT TO [facility] FOR REVIEW FOR POSSIBLE SNIF ON MONDAY.
--- NOTE | 2022-05-27 15:14 | NUR ---
SPOKE TO PATIENT AND LET HER KNOW A REFERRAL WAS SENT TO [facility] FOR POSSIBLE PLACEMENT MONDAY. FAMILY IS IN AGREEMENT.
--- NOTE | 2022-05-27 16:30 | NUR ---
NO CHANGES FROM AM ASSESSEMENT.
--- NOTE | 2022-05-27 18:30 | NUR ---
PATIENT TAKEN OFF BIPAP. PLACED ON 4LNC. PATIENT ATTEMPTING TO EAT DINNER. JENNIFER AT BEDSIDE ASSISTING.
--- NOTE | 2022-05-27 19:30 | NUR ---
PT ASSESSED AND FOUND TO BE LAYING IN HOSPITAL BED, AWAKE, ALERT AND ORIENTED WTIH GENERALIZED CONFUSION TO DATE AND TIME. PTS RESPIRATIONS ARE LABORED, AND PT STATES "SHE CANT BREATH." PT PLACED ON BIPAP AND PRN MS ADMINISTERED. PT REASSESSED WITH NOTED IMPROVEMENT IN WORK OF BREATHING. RT AT BEDSIDE. V/S ASSESSED, ALARM LIMITS SET AND NURSE CALL LIGHT PLACED AT PTS SIDE.
--- NOTE | 2022-05-28 00:55 | NUR ---
PT ASSESSED AND FOUND TO BE SOB. RT AT BEDSIDE. V/S ASSESSED AND PRN MS ADMINISTERED.
--- NOTE | 2022-05-28 04:17 | NUR ---
PT EXPERIENCING TACHYPNEA, TACHYCARDIA AND HTN WITH INCREASED ANXIOUSNESS. PT NOTED TO HAVE MULTIPLE, TWO BEAT RUNS OF VENTRICULAR TACHYCARDIA. V/S FREQUENCY INCREASED AND DR. BEAVER CALLED. NEW ORDERS OBTAINED. PRN LORAZEPAM ADMINISTERED. FIO2 INCREASED TO 50%.
--- NOTE | 2022-05-28 06:10 | NUR ---
PT DEPENDENT ON BIPAP THROUGHOUT THE NIGHT. PT WITH INCREASED LEVEL OF ANXIOUSNESS REQUIRING MULTIPLE PRNS. PT OXYGENATION INCREASED FROM 35% TO 50% FIO2. LS CONTINUE TO BE DIMINISHED THROUGHOUT. PT HAS BEEN IN A NSR TO ST WITH EPISODES OF VENTRICULAR COUPLETS AND HTN DURING TIMES OF SEVERE ANXIETY. MD AWARE AND PRN LORAZEPAM ORDERED. PT WITH ADEQUATE UO. LAST BM NOTED ON 03/21. PT ABLE TO TURN HERSELF FROM SIDE TO SIDE WHILE IN HOSPITAL BED. LABS: NO NEW LABS OBAINED OF 05/28/2022.
--- NOTE | 2022-05-28 07:25 | NUR ---
PATIENT RESTING WITH EYES CLOSED. BIPAP IN PLACE. RR EVEN, MILDLY LABORED. SIGNIFICANT OTHER, JENNIFER, AT BEDSIDE.
--- NOTE | 2022-05-28 08:15 | NUR ---
PATIENT LYING IN BED, EYES CLOSED, RESTING. BREAKFAST TRAY BROUGHT IN. BIPAP REMOVED AND PATIENT PLACED ON 3LNC. ENCOURAGED PATIENT TO EAT. PATIENT TOOK ONE SIP OF WATER AFTER MUCH STIMULATION. PATIENT IS LETHARGIC, AROUSES WITH SOME STIMULATION. PATIENT WAS ABLE TO FOLLOW COMMANDS AFTER MULTIPLE STIMULATIONS, SLOW TO RESPOND. PATIENT IS CONFUSED AND STATED SHE WAS AT HOME WHEN ASKED, SHE DID KNOW WHO JENNIFER WAS SITTING NEXT TO HER BED. LUNGS ARE DIMINISHED AND NOT MOVING MUCH AIR, DIFFICULT TO AUSCULTATE. ABDOMEN IS FIRM, WITH HYPOACTIVE BOWEL SOUNDS. NON-TENDER ON PALPATION. BAILEY IS IN PLACE, DRAINING SLIGHTLY CLOUDY, YELLOW URINE TO GRAVITY. BAILEY CARE PERFORMED. STAT LOCK CHANGED DUE TO SOILING. PATIENT LAID FLAT AND TURNED, FOUND TO HAVE SMALL BM. SOME WATERY STOOL AND VERY SMALL HARD STOOL NOTED. DIGITAL ASSESSMENT DID NOT FIND ANY STOOL REACHABLE. LOWER LEGS WITH 1+ PITTING EDEMA. PATIENT IS ABLE TO MOVE ALL EXTREMETIES. SKIN REMAINS DRY AND FLAKY. REDNESS AND BEGINNING TO OPEN ON BRIDGE OF NOSE AT BIPAP PRESSURE POINT NOTED TO BE NEW FROM YESTERDAY. PATIENT'S LIPS DRY. FACE WASHED AND DILLAN AND BAILEY CARE PERFORMED. DILLAN CARE PERFORMED AND DRAW SHEET CHANGED.
--- NOTE | 2022-05-28 09:27 | NUR ---
PATIENT OFF BIPAP, ON 3LNC. PATIENT REMAINS CONFUSED. IS AROUSING A LITTLE EASIER. IS ABLE TO FOLLOW COMMANDS AND TOOK A SIP OF WATER.
--- NOTE | 2022-05-28 09:53 | NUR ---
ATTEMPTED TO HAVE PATIENT TAKE PILLS WITH APPLESAUCE/WATER. PATIENT UNABLE TO SWALLOW METOPROLOL. IT DISSOLVED IN MOUTH. PATIENT STATED "NO MORE" WHEN ATTEMPTING TO GIVE HER MORE WATER/APPLESAUCE. PATIENT IS NOT ALERT ENOUGH TO TAKE PO MEDS. WILL NOTIFIY OF STATUS.
--- NOTE | 2022-05-28 11:13 | NUR ---
AND PATIENT SIGNIFICANT OTHER AT BEDSIDE. CONVERSATION ABOUT COMFORT CARE. SO AGREED TO COMFORT CARE ONLY. PATIENT NOT ABLE TO PARTICIPATE IN CONVERSATION DUE TO MENTAL STATUS, CONFUSION, LETHARGY. SO UNDERSTANDS CONVERSATION ABOUT END OF LIFE CARE AND IS ALERT AND ORIENTED HIMSELF. PATIENT HAD EXPRESSED EARLIER THIS WEEK THAT JENNIFER (SO) IS WHO SHOULD MAKE DECISIONS FOR HER IF SHE IS NOT ABLE TO IN THE PRESENCE OF THIS NURSE.
--- NOTE | 2022-05-28 12:11 | NUR ---
PATIENT RESTING COMFORTABLY,OXYGEN TURNED DOWN TO 2LNC. RR EVEN AND MILDLY LABORED. PATIENT DOES NOT EXPRESS ANY PAIN OR DISCOMFORT. OPENS EYES TO VOICE, WILL ATTEMPT TO FOLLOW COMMANDS. OFFERED WATER, PATIENT DECLINED. LUNGS REMAIN DIMINISHED THROUGHOUT. MOUTH CARE PERFORMED. PATIENT REPOSITIONED IN BED.
--- NOTE | 2022-05-28 13:23 | NUR ---
OXYGEN DECREASED TO 1LNC. PATIENT RESTING COMFORTABLY. RR EVEN AND REMAIN MILDLY LABORED.
--- NOTE | 2022-05-28 13:32 | NUR ---
PATIENT HAVING INCREASED WORK OF BREATHING. OXYGEN BACK TO 2LNC. PHARMOLOGIC INTERVENTION.
--- NOTE | 2022-05-28 13:46 | NUR ---
PATIENT STATING "I CAN'T BREATHE". VERBAL REASSURANCE GIVEN. INCREASED OXYGEN BACK TO 3LNC. ALSO GIVING MORPHINE IV.
--- NOTE | 2022-05-28 14:00 | NUR ---
PATIENT APPEARS TO BE RESTING COMFORTABLY AT THIS TIME. RR SLOWED SLIGHTLY AND LABORED WORK IS LESS. OXYGEN BACK TO 2LNC.
--- NOTE | 2022-05-28 15:28 | NUR ---
PATIENT WOKE UP STATING HER CHEST WAS TIGHT. PHARMALOGIC INTERVENTION DONE. JENNIFER REMAINS AT BEDSIDE. PATIENT REPOSITIONED IN BED.
--- NOTE | 2022-05-28 18:15 | NUR ---
RECIEVED BEDSIDE REPORT FROM ZACHERY ROJAS. PT BROUGHT TO ROOM 114 VIA STRETCHER. PT EYES CLOSED, BREATHING EVEN AND UNLABORED. WHEN STATING PTS NAME PT EYES OPENED, BUT NO RESPONSE AND EYES CLOSED AGAIN. ASKED PT IF SHE WAS IN PAIN, NO RESPONSE. FLACC SCALE - 0. FAMILY AT BEDSIDE. CALL LIGHT WITHIN REACH.
--- NOTE | 2022-05-28 18:15 | NUR ---
PATIENT TRANSFERRED TO ROOM 114 VIA STRETCHER ON 3LNC. ALL BELONGINGS TRANSFERRED TO ROOM WITH PATIENTKellee RODRIGUEZ AT BEDSIDE. PATIENT RECEIVED DOSE OF MORPHINE PRIOR TO TRANSFER, STATING SHE WAS HAVING CHEST TIGHTNESS.
--- NOTE | 2022-05-28 18:24 | NUR ---
REPORT GIVEN TO JONI RN AT BEDSIDE.
--- NOTE | 2022-05-28 19:40 | NUR ---
RECEIVED REPORT FROM DAY SHIFT ZACHERY JORDAN. PATIENT IS RESTING IN BED. PATIENT SHAKES HEAD NO WHEN ASKED ABOUT PAIN. SIGNIFICANT OTHER IN THE ROOM AND DENIES ANY NEEDS. CALL LIGHT IN REACH.
--- NOTE | 2022-05-28 22:01 | NUR ---
PATIENT REPOSITIONED. PATIENT TOLERATED ACTIVITY WELL. PATIENT SHAKES HEAD NO WHEN ASKED ABOUT PAIN. PATIENTS SIGNIFICATN OTHER STATED "SHE HAS NOT COMPLAINED OF PAIN, AND IS COMFORTABLE". PATIENT REMAINS ON 2L VIA NC. NO FURTHER NEEDS NOTED. CALL LIGHT IN REACH.
--- NOTE | 2022-05-28 22:50 | NUR ---
PATIENTS SIGNIFICANT OTHER REPORTS PATIENT IS HAVING CHEST DISCOMFORT. PATIENT SHAKES HEAD NO WHEN THIS RN ASKS ABOUT PAIN. PATIENTS BREATHING IS LABORED. PRN MEDICATION GIVEN PER ORDER. PATIENT REPOSITIONED. PATIENTS BREATHING APPEARED MORE RELAXED AND RR WAS 10-12 WHEN THIS RN LEFT THE ROOM. NO FURTHER NEEDS NOTED. CALL LIGHT IN REACH.
--- NOTE | 2022-05-29 00:21 | NUR ---
PATIENT REPOSITIONED IN BED. ORAL CARE COMPLETED. PATIENT SHAKES HEAD NO WHEN ASKED ABOUT PAIN. PATIENTS SIGNIFICANT OTHER ASLEEP ON COUCH.
--- NOTE | 2022-05-29 01:33 | NUR ---
PATIENT REPOSITIONED IN BED. PATIENT SHOOK HEAD YES WHEN ASKED ABOUT PAIN, PRN PAIN MEDICATION GIVEN PER ORDER. NO FURTHER NEEDS NOTED. CALL LIGHT IN REACH.
--- NOTE | 2022-05-29 02:14 | NUR ---
PATIENT IS RESTING IN BED WITH EYES CLSOED, RR 10. CALL LIGHT IN REACH. ASLEEP ON THE COUCH.
--- NOTE | 2022-05-29 03:28 | NUR ---
PATIENT STATED "LITTLE BIT" WHEN ASKED ABOUT PAIN. PATIENT REPOSITIONED IN BED. PATIENT GIVEN PRN PAIN MEDICATION PER ORDER. NO FURTHER NEEDS NOTED. CALL LIGHT IN REACH.
--- NOTE | 2022-05-29 04:27 | NUR ---
PATIENT IS RESTING IN BED WITH EYES CLOSED, RR 9. CALL LIGHT IN REACH.
--- NOTE | 2022-05-29 06:09 | NUR ---
PATIENT REPOSITIONED IN BED. PATIENT GIVEN PRN PAIN MEDICATION PER ORDER FOR CHEST PAIN. ORAL CARE COMPLETED. PATIENTS REMAINS AT BEDSIDE. PATIENT AND DENY ANY NEEDS. CALL LIGHT IN REACH.
--- NOTE | 2022-05-29 07:44 | NUR ---
RECIEVED SHIFT REPORT. PT RESTING IN BED, EASY TO AROUSE. WHEN ASKED IF PAIN PT STATES "NO, IM FINE" AND NODS YES WHEN ASKED IF COMFORTABLE. SPOUSE AT BEDSIDE. DENIES FURTHER NEEDS. CALL LIGHT WITHIN REACH
--- NOTE | 2022-05-29 08:30 | NUR ---
PT RESTING IN BED, EYES CLOSED, BREATHING EVEN AND UNLABORED. SPOUSE AT BEDSIDE CALL LIGHT WITHIN REACH.
--- NOTE | 2022-05-29 08:43 | NUR ---
PATIENT REPORTS "I CAN'T BREATH" PATIENT IS ON 2L VIA NC, DENIES WANTING TO WEAR AN OXYMASK. PATIENT SAT MORE UPRIGHT, CALL TO RT FOR PRN NEB. PATIENT GIVEN 5MG OF IV MORPHINE FOR AIR HUNGER.
--- NOTE | 2022-05-29 09:30 | NUR ---
PT RESTING IN BED, EYES CLOSED, BREATHING EVEN AND LABORED. SPOUSE AT BEDSIDE CALL LIGHT WITHIN REACH.
--- NOTE | 2022-05-29 10:01 | NUR ---
MORNING ASSESSMENT COMPLETE. SPOUSE REPORTED PT WOKE UP STATING SHE COULDNT BREATHE. THIS RN CAME TO ASSESS. PT APPEARS TO BE RESTING COMFORTABLY IN BED, DROWSY BUT AROUSABLE. WHEN ASKED IF SHES IN PAIN OR UNCOMFOTABLE PT GIVES NO RESPONSE. USING FLACC SCALE- 0. BREATHING IS EVEN AND LABORED, RR 7. SPOUSE STATES SHE HAS EPISODES WHERE SHE WILL WAKE UP IN PANIC AND STATE SHE CANT BREATHE BUT WILL NOT APPEAR IN DISTRESS. NO FURTHER NEEDS AT THIS TIME. CALL LIGHT WITHIN REACH. FAMILY ENCOURAGE TO REACH OUT IF ANY NEEDS.
--- NOTE | 2022-05-29 10:05 | NUR ---
Patient is on comfort measures and per devulcanizer charger not appropriate for PT services.
--- NOTE | 2022-05-29 11:15 | NUR ---
PT RESTING IN BED, EYES CLOSED, BREATHING EVEN AND LABORED. SPOUSE AT BEDSIDE CALL LIGHT WITHIN REACH.
--- NOTE | 2022-05-29 12:50 | NUR ---
SPOUSE REPORTED TO NURSES STATION PT WAS FEELING SOB. THIS RN IN ROOM TO ASSESS. REQUESTED PRN MORPHINE, ADMINISTERED (PER EMAR). BREATHING EVEN AND LABORED, RR 14. EXPLAINED THE MORPHINE DOSE WITH PATINT AND SPOUSE AND THEY FEEL THE 5MG ISNT WORKING AND WILLING TO TRY 6MG NEXT DOSE NEEDED. CALL LIGHT WITHIN REACH. SPOUSE REMAINS AT BEDSIDE.
--- NOTE | 2022-05-29 13:11 | NUR ---
AFTER LAST MOPHINE ADMINISTRATION THE PATIENT STATED "I WANT MORE". TO CLARIFY I ASKED IF WANTED THE FULL DOSE AND SHE SAID "YES". THIS RN ALSO OFFERED ATIVAN AND PT AGREED TO WANTING BOTH AT THIS TIME. MORPHINE AND ATIVAN ADMINISTERED (PER EMAR). WILL CONTIUNE TO MONITOR PATIENT. SPOUSE DENIES ANY FURTHER NEEDS AT THIS TIME. CALL LIGHT IN REACH
--- NOTE | 2022-05-29 15:39 | NUR ---
THIS RN AND ZACHERY RODRIGUEZ SET UP PET CAREGIVER PUMP. PT BREATHING EVEN AND LABORED, RR 7. CALL LIGHT WITHIN REACH. SPOUSE HAS LEFT TO GO HOME BUT WILL BE BACK.
--- NOTE | 2022-05-29 16:16 | NUR ---
THIS RN WENT TO CHECK ON PATIENT, GILMAR VALERA AT BEDSIDE. RR- 7, BREATHING EVEN AND LABORED. CALL LIGHT WITHIN REACH.
--- NOTE | 2022-05-29 16:32 | NUR ---
THIS RN CALLED INTO ROOM. ZACHERY RODRIGUEZ IN ROOM. PT PASSED AT THIS TIME, SPOUSE AT BEDSIDE.
--- NOTE | 2022-05-29 17:49 | NUR ---
WAS NOTIFIED BY MANUEL YBARRA THAT PT HAD PASSED. ARRIVED, RN JONI INFORMED ME THAT PTS' S.O. WAS IN . MET JENNIFER, GAVE COMFORT. HE INFORMED ME HE WAS TRYING TO CONTACT PTS' SON IN [place] FOR NOTIFICATION. SHARED HOW THEY MET, HOW DIFFICULT THE LAST YEAR HAS BEEN ON PT. JENNIFER SHARED HE ALSO HAS RECENTLY LOST LOVED ONES AND FEELS VERY ALONE NOW. JENNIFER THANKED ME FOR VISIT, REQUESTED PRAYER. [facility] [employer] CHOSEN FOR ARRANGEMENTS. CONTACTED [facility], ASSISTED WITH TRANSFER ALONG WITH M/S STAFF. EXCHANGED PAPERWORK, ESCORTED TO VEHICLE.
== END 2022-05-29 16:32 | DRG 189 ==
LOC: ED 16:39 → MS 20:13 → CCU 20:13 → MS 05-28 18:21
PROVIDERS: ADMIT Family Medicine; ATTEND Internal Medicine
PROC: 5A09557 Assistance with Respiratory Ventilation, Greater than 96 Consecutive Hours, Continuous Positive Airway Pressure (ICD-10-PCS; principal; 2022-05-21)
DX: J96.21 Acute and chronic respiratory failure with hypoxia (principal); J44.1 Chronic obstructive pulmonary disease with (acute) exacerbation; C92.10 Chronic myeloid leukemia, BCR/ABL-positive, not having achieved remission; Z20.822 Contact with and (suspected) exposure to COVID-19; Z51.5 Encounter for palliative care; Z66 Do not resuscitate; R73.03 Prediabetes; J96.22 Acute and chronic respiratory failure with hypercapnia; R77.8 Other specified abnormalities of plasma proteins; R00.0 Tachycardia, unspecified; T38.0X5A Adverse effect of glucocorticoids and synthetic analogues, initial encounter; F17.210 Nicotine dependence, cigarettes, uncomplicated; D46.9 Myelodysplastic syndrome, unspecified; F39 Unspecified mood [affective] disorder; I10 Essential (primary) hypertension; Z90.710 Acquired absence of both cervix and uterus; Z98.890 Other specified postprocedural states; Z88.0 Allergy status to penicillin; Z88.2 Allergy status to sulfonamides; Z88.8 Allergy status to other drugs, medicaments and biological substances; Z79.899 Other long term (current) drug therapy
CPT/HCPCS: 36415; 36600; 51702; 70450; 71045; 80053; 82800; 82803; 83036; 83605; 83735; 83880; 84100; 84484; 85025; 87040; 87502; 93005; 93010; 94640; 94644; 94645; 94660; 94799; 99285-25; A9270; C9803; J0456; J1650; J2060; J2270; J2920; J2930; J3480; J7030; J7040; J7042; J7060; J7121; U0003